=== PATIENT | male | born 1995 | race Two or more races ===

== ENCOUNTER 2021-10-25 13:55 | Emergency (ER) | payer SELFPAY ==
[~2021-10-25] VITALS: Ht 185.4 cm; Wt 113.4 kg
[2021-10-25 14:21] VITALS: BP 189/107
[2021-10-25 15:28] LABS: Basophils # (auto) 0 10 ^3/uL (0-0.2); Basophils % (auto) 0.3 % (0.0-2.0); Eosinophils # (auto) 0 10 ^3/uL (0-0.8); Eosinophils % (auto) 0.3 % (0.0-7.0); Hematocrit 48.2 % (41.0-53.0); Hemoglobin 16.2 g/dL (13.5-17.5); Lymphocytes # (auto) 0.4 10 ^3/uL (0.4-5.4); Lymphocytes % (auto) 9.9 % (10.0-50.0); Mean Corpuscular Hemoglobin 30.9 pg (28.0-32.0); Mean Corpuscular Hgb Conc. 33.7 g/dL (32.0-36.0); Mean Corpuscular Volume 91.7 fL (80.0-100.0); Monocytes # (auto) 0.7 10 ^3/uL (0-1.3); Monocytes % (auto) 17.5 % (0.0-12.0); Neutrophils # (auto) 2.8 10 ^3/uL (1.6-8.6); Nucleated Red Blood Cells % 0.2 %; Red Blood Cells 5.25 10^6/uL (4.5-5.90); Red Cell Distribution Width 12.7 % (11.8-14.3); White Blood Cell 3.9 10^3/uL (4.4-10.8)
[2021-10-25 15:49] LABS: Potassium 4.3 mmol/L (3.5-5.1)
[2021-10-25 15:52] LABS: Albumin 4.4 g/dL (3.4-5.0); BUN/Creatinine Ratio 6.3; Calcium 9.7 mg/dL (8.5-10.1)
[2021-10-25 15:55] LABS: Total Protein 7.9 g/dL (6.4-8.2)
[2021-10-25] MEDS: ONDANSETRON ODT 4 MG TAB PO ONE (16:52)
[2021-10-25] MEDS ORDERED: METH4PAK PO (16:53)
[2021-10-25] MEDS ORDERED: AZIT1POW PO (16:53)
[2021-10-25] MEDS ORDERED: ONDA-144 PO (16:55)
== END 2021-10-25 18:45 | disposition left against medical advice (07) ==
LOC: ER 13:55
DX: J20.9 Acute bronchitis, unspecified (principal); R11.10 Vomiting, unspecified; Z20.822 Contact with and (suspected) exposure to COVID-19
CPT/HCPCS: 36415; 71046; 80053; 85025; 87426; 93005; 99285; Q0162